=== PATIENT | male | born 1985 | race American Indian/Alaskan Native ===

== ENCOUNTER 2021-07-14 14:36 | Emergency (ER) | payer SELFPAY ==
[2021-07-14 14:46] VITALS: BP 145/86
[2021-07-14] MEDS ORDERED: CYCLOBENZAPRINE 10 MG TAB PO ONE (15:07)
[2021-07-14] MEDS ORDERED: dexAMETHasone 20 MG/5 ML VIAL IM ONE (15:07)
[2021-07-14] MEDS ORDERED: KETOROLAC 60 MG/2 ML INJ IM ONE (15:07)
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
== END 2021-07-14 15:54 | disposition home or self-care (01) ==
LOC: ED 14:36
DX: M54.50 Low back pain, unspecified (principal)
CPT/HCPCS: 96372; 99282; J1100; J1885